=== PATIENT | male | born 1960 | race Caucasian/White ===

== ENCOUNTER → 2017-03-06 | Outpatient (CLI) | payer BC ==
[~2017-03-06] MED LIST: COUM2.5T17 PO; PERC5TAB12 PO
[2017-03-06 11:45] LABS: MEAN CORPUSCULAR HGB CONC 34.4 g/dl (32.0-36.5); RED CELL DISTRIBUTION WIDTH 13.4 % (11.5-14.5); WHITE BLOOD COUNT 4.8 K/mm3 (4.0-10.0)
[2017-03-06 11:48] LABS: INR 0.99
--- NOTE | 2017-03-06 11:53 | REP ---
Clinical: Preoperative assessment . Comparison: None . Technique: PA and lateral. Findings: The mediastinum and cardiac silhouette are normal. Airway is patent and midline. The lung lamb are clear and without acute consolidation, effusion, or pneumothorax. The skeletal structures are intact and normal. Impression: 1. No acute cardiopulmonary process. Signed by Gurdeep Whitman MD 03/06/2017 11:45 A
[2017-03-06 11:57] LABS: ALBUMIN 3.9 GM/DL (3.2-5.2); ALBUMIN/GLOBULIN RATIO 1.15 (1.00-1.93); ALKALINE PHOSPHATASE 47 U/L (45-117); ALT/SGPT 39 U/L (12-78); ANION GAP 5 MEQ/L (8-16); AST/SGOT 26 U/L (15-37); BILIRUBIN,TOTAL 0.7 MG/DL (0.2-1.0); BLOOD UREA NITROGEN 18 MG/DL (7-18); CARBON DIOXIDE LEVEL 31 MEQ/L (21-32); CHLORIDE LEVEL 108 MEQ/L (98-107); CREATININE FOR GFR 0.79 MG/DL (0.70-1.30); GLOMERULAR FILTRATION RATE > 60.0 (>56); GLUCOSE, FASTING 94 MG/DL (70-105); POTASSIUM SERUM 5.1 MEQ/L (3.5-5.1); SODIUM LEVEL 144 MEQ/L (136-145); TOTAL PROTEIN 7.3 GM/DL (6.4-8.2)
--- NOTE | 2017-03-06 13:06 | ECGEPIP ---
Stationary ECG Study [facility] Test Date: 2017-03-06 Pat Name: JEAN MARIE JUÁREZ Department: Room: - Gender: M Supervisor Machining: MARGARET : 1960 Requested By: Moody Bartlett Order Number: [id number] Reading MD: Aniket Sandoval Measurements Intervals [place] Rate: 54 P: 23 MN: 220 QRS: 48 QRSD: 146 T: -2 QT: 443 QTc: 420 Interpretive Statements SINUS BRADYCARDIA WITH FIRST DEGREE AV BLOCK RIGHT BUNDLE BRANCH BLOCK Comparison tracing not on file Electronically Signed On 03-06-2017 13:06:29 EDT by Aniket Sandoval
== END ==
LOC: M ADMPAT 10:03
PROVIDERS: ATTEND Orthopaedic Surgery
DX: Z01.812 Encounter for preprocedural laboratory examination (principal); M17.9 Osteoarthritis of knee, unspecified

== ENCOUNTER 2017-03-20 11:10 | Inpatient (IN) | payer BC ==
[2017-03-06 10:34] VITALS: BP 114/84
--- NOTE | 2017-03-17 14:45 | HPE ---
DATE OF ANTICIPATED ADMISSION: 03/20/2017 ATTENDING PHYSICIAN: Dr. Moody Bartlett. CHIEF COMPLAINT: Right knee pain and stiffness. HISTORY: The patient is a pleasant 57-year-old male with progressively worsening right knee pain and stiffness. He has failed to improve with conservative measures. He continues to have pain with weightbearing activities and activities of daily living. He has consented for an elective right total knee arthroplasty with Dr. Bartlett. Medical clearance from Dr. Dial obtained and reviewed at today's appointment. CURRENT MEDICAL CONDITIONS: Osteoarthritis. CURRENT MEDICATIONS: None. ALLERGIES: No known drug allergies. SURGICAL HISTORY: Inguinal hernia repair. Multiple right knee arthroscopic surgeries. Left knee bursectomy. SOCIAL HISTORY: The patient does not use tobacco and only drinks alcohol socially. REVIEW OF SYSTEMS: Patient denies fevers, chills, nausea, vomiting, or diarrhea. Denies chest pain, shortness of breath, cough, lightheadedness or headaches. He does have congestion currently but states it is improving. He continues to have right knee pain with weightbearing activities and activities of daily living. PHYSICAL EXAMINATION: The patient is a well-nourished, well-developed male in no apparent distress. VITAL SIGNS: Blood pressure 152/96, respirations 14, heart rate 64, height 70 inches, weight 231 pounds, temperature 97.2. NECK: Supple without lymphadenopathy. HEART: Regular rate and rhythm. LUNGS: Clear to auscultation bilaterally. ABDOMEN: Bowel sounds present, soft and nontender to palpation. MUSCULOSKELETAL: The patient is walking today with a slight limp favoring the right leg. Inspection of the right knee does show a very small abrasion to the superolateral knee which appear to be healing well. He does have quite a bit of tenderness along the medial and lateral joint lines. Motion and extension is normal and he can get to approximately 110 degrees of flexion. Right lower extremity strength is normal. No hip irritability was elicited with range of motion. His calf is soft, nontender to palpation with no palpable cords noted. Distally, he is neurovascularly intact. LABORATORY DATA: Chest x-ray: No acute cardiopulmonary process. EKG: Sinus bradycardia with first degree arteriovenous block. Right bundle branch block. Urinalysis: Positive for only 4 RBC per high power field. Urine culture shows no growth. Nasal and sinus culture reveal normal tyesha. Comprehensive metabolic profile: Fasting glucose 94, BUN 18, creatinine 0.79, glomerular infiltration rate greater than 60, sodium 144, potassium 5.1, chloride elevated at 108, carbon dioxide 31, anion gap decreased at 5, calcium 9, AST 26, ALT 39, alkaline phosphatase 47, total bilirubin 0.7, total protein 7.3, albumin 3.9, albumin/globulin ratio 1.15. Complete blood count : WBC 5, RBC 4.8, hemoglobin 15.4, hematocrit 44.7, platelets 215, erythrocyte sedimentation rate 5, prothrombin time 13.2, INR 0.99. IMPRESSION: 1. Right knee osteoarthritis with x-rays notable for endstage degenerative changes. 2. Isolated blood pressure elevation. PLAN: 1. The patient has consented for an elective right total knee arthroplasty with Dr. Bartlett. 2. Isolated blood pressure elevation should not delay surgery pending readings on the day of surgery. [facility]
[~2017-03-20] VITALS: Ht 177.8 cm; Wt 116.5 kg
[~2017-03-20 11:10] MED LIST changes: -COUM2.5T17 PO; +LIDOCAINE 2% INJ 100 MG/5 ML SDV (FOR ANES.) As Ordered ONE; +MIDAZOLAM INJ 2 MG/2 ML VIAL (J2250) As Ordered ONE; +ONDANSETRON 4MG/2ML VIAL (J2405) As Ordered ONE; -PERC5TAB12 PO; +PROPOFOL 200 MG/20 ML VIAL As Ordered ONE; +dexameTHASONE 4 MG/ML 1ML VIAL (J1100) As Ordered ONE; +fentaNYL 100 MCG/2 ML INJECTION (J3010) As Ordered ONE
[2017-03-20] MEDS ORDERED: LR 1,000 ML IV ONE (11:30)
[2017-03-20] MEDS ORDERED: TRANEXAMIC ACID 100 MG/ML 10ML VIAL As Ordered ONE (11:33)
[2017-03-20] MEDS ORDERED: EPINEPHrine INJ 1 MG/ML 1ML AMP As Ordered ONE (11:34)
[2017-03-20] MEDS ORDERED: ceFAZolin 1GM INJ (J0690) As Ordered ONE (11:34)
[2017-03-20] MEDS ORDERED: fentaNYL 100 MCG/2 ML INJECTION (J3010) As Ordered ONE (11:36)
[2017-03-20] MEDS ORDERED: MIDAZOLAM INJ 2 MG/2 ML VIAL (J2250) As Ordered ONE (11:36)
--- NOTE | 2017-03-20 11:38 | IPN ---
DATE: 03/20/2017 Patient was seen and examined. He wished to go with a right total knee arthroplasty. He understands the nature of this, the risks of bleeding, infection, damage to nerves, vessels, persistent pain, wear loosening, blood clots, stiffness, medical problems, among others.
[2017-03-20] MEDS ORDERED: BUPIVACAINE LIPOSOME/PF 1.3% 20 ML VIAL (13.3MG/ML)(EXPAREL) As Ordered ONE (11:48)
[2017-03-20] MEDS: fentaNYL 100 MCG/2 ML INJECTION (J3010) IV PRN ×2 (12:13→12:15)
[2017-03-20] MEDS: MIDAZOLAM INJ 2 MG/2 ML VIAL (J2250) IV PRN ×2 (12:13→12:15)
[2017-03-20] MEDS ORDERED: ROPIvacaine 0.5% 30 ML INJECTION (J2795) ONE (13:57)
[2017-03-20] MEDS ORDERED: dexameTHASONE 10 MG/1 ML VIAL PRES.FREE (J1100) ONE (13:57)
[2017-03-20] MEDS ORDERED: LIDOCAINE 1% MDV 20ML VIAL ONE (13:57)
[2017-03-20] MEDS ORDERED: MORPHINE 1MG/ML IN 0.9% NACL 100ML IV BAG As Ordered ONE (14:05)
[2017-03-20] MEDS ORDERED: fentaNYL 100 MCG/2 ML INJECTION (J3010) IV PRN (15:00)
[2017-03-20] MEDS ORDERED: PERCOCET 5MG/325MG TAB PO PRN (15:00)
[2017-03-20] MEDS ORDERED: ONDANSETRON 4MG/2ML VIAL (J2405) IV PRN ×3 (15:00→15:15)
[2017-03-20] MEDS ORDERED: LR 1,000 ML IV SCH ×2 (15:00)
--- NOTE | 2017-03-20 15:01 | CR ---
DATE OF CONSULTATION: 03/20/2017 PRIMARY CARE PHYSICIAN: Dr. Dial REFERRING PHYSICIAN: Moody Bartlett MD REASON FOR CONSULT: Management of chronic medical issues. CHIEF COMPLAINT: Right knee pain secondary to degenerative joint disease (DJD). HISTORY OF PRESENT ILLNESS: This is a 57-year-old male with history of inguinal hernia repair, multiple right knee arthroscopic surgeries, left knee bursectomy with social alcohol use who presents for right knee replacement due to limitations of activities of daily living (ADL) from severe osteoarthritis (OA). The patient has tried conservative management at home, but with persistent pain, opting for right total knee. He denies any prior history of coronary artery disease, myocardial infarction (CA), congestive heart failure (CHF), no prior history of chronic obstructive pulmonary disease (COPD), emphysema, asthma, chronic bronchitis. Denies nausea, vomiting, diarrhea, abdominal pain, weight gain, weight loss, changes in appetite, weight and upper or lower extremity paresthesias, weakness, changes in vision, headaches, rhinorrhea, sore throat, or nasal congestion. The patient was medically optimized by his primary care physician and currently has no acute issues and had an uneventful right total knee replacement. PAST MEDICAL HISTORY: Inguinal hernia repair. Multiple right knee arthroscopic surgeries. Left knee bursectomy. Osteoarthritis (OA). ALLERGIES: No known drug allergies. HOME MEDICATIONS: None. SOCIAL HISTORY: Social alcohol use, recreational drug use. REVIEW OF SYSTEMS: As per history of present illness; 12 point system otherwise negative. PHYSICAL EXAMINATION: Temperature 97, pulse 68, respiratory rate 18, blood pressure 105/66, 95% on 3 liters nasal cannula. Generally awake, alert and oriented to person, place and time. Answering questions appropriate. Anicteric sclerae. No jaundice. Pupils round and reactive to light and accommodation. Extraocular muscles are intact. Normocephalic, atraumatic. Neck is supple. Full range of motion. No cervical lymphadenopathy or thyromegaly. Lungs clear to auscultation. No wheezing, rales or rhonchi. Heart S1 and S2, sinus rhythm. Abdomen is soft, nontender, nondistended. Positive bowel sounds. Extremities status post right total knee, currently bandaged. Patient has no cyanosis, clubbing or pitting edema bilaterally lower extremities. LABORATORY DATA: 03/06 CBC white count 4.8, hemoglobin 15, hematocrit 44, platelet count 215, sed rate of 5, sodium 144, potassium 5.1, chloride 108, bicarb 31, BUN 18, creatinine 0.79, glucose 94, calcium 9, total bilirubin 0.78, AST 26, ALT 39, alkaline phosphatase 47, total protein 7.3, albumin 3.9. IMAGING STUDIES: Chest x-ray on 03/06/2017 no acute cardiopulmonary process. ASSESSMENT/PLAN: This is a 57-year-old male with a history of osteoarthritis (OA) limiting his activities of daily living due to severe pain of the right knee who presented for right total knee replacement, prior history of multiple arthroscopic surgeries, and inguinal hernia repair and left knee bursectomy. CURRENT ISSUES: 1. Right total knee replacement. Postop management per primary team, Dr. Moody Bartlett, deep vein thrombosis (DVT) prophylaxis, bowel regimen and pain control. Physical therapy to evaluate and treat. Activity per primary team. 2. Osteoarthritis (OA). Pain management per orthopedic surgery. 3. History of inguinal hernia repair. No acute issues. 4. Deep vein thrombosis (DVT) prophylaxis. Coumadin managed by orthopedic surgery. Patient will be followed by Dr. Ritu Navas as the hospitalist sap business objects consultant for any active medical issues.
[2017-03-20] MEDS ORDERED: ACETAMINOPHEN TAB 650MG DOSE (2X325MG) PO PRN (15:15)
[2017-03-20] MEDS ORDERED: MORPHINE 1MG/ML IN 0.9% NACL 100ML IV BAG IV PRN (15:15)
[2017-03-20] MEDS ORDERED: NALBUPHINE HCL 10 MG/ML AMP (J2300) IV PRN (15:15)
[2017-03-20] MEDS ORDERED: diphenhydrAMINE INJ 50MG/ML VIAL (J1200) IV PRN (15:15)
[2017-03-20] MEDS ORDERED: NALOXONE INJ 0.4 MG/1 ML VIAL (J2310) IV PRN (15:15)
[2017-03-20] MEDS ORDERED: FLEET ENEMA PR PRN (15:15)
[2017-03-20] MEDS ORDERED: EPIDURAL/PCA KEYS XX PRN (15:15)
[2017-03-20 15:30] VITALS: BP 133/82
[2017-03-20 16:00] VITALS: BP 136/85
[2017-03-20 17:00] VITALS: BP 131/83
[2017-03-20] MEDS ORDERED: WARFARIN SOD 5 MG TAB PO ONE (17:00)
[2017-03-20 18:00] VITALS: BP 157/86
[2017-03-20 19:00] VITALS: BP 130/81
[2017-03-21 02:00] VITALS: BP 123/82
[2017-03-21 06:00] VITALS: BP 115/83
--- NOTE | 2017-03-21 06:02 | RO ---
DATE OF PROCEDURE: 03/20/2017 PREOPERATIVE DIAGNOSIS: Right knee osteoarthritis. POSTOPERATIVE DIAGNOSIS: Right knee osteoarthritis. PROCEDURE: Right total knee arthroplasty using PFC rotating platform cruciate retaining size 4 femur, size 5 tibia, 12.5 polyethylene. SURGEON: Moody Bartlett MD CRAFT DEMONSTRATOR: BALBIR Bhagat ANESTHESIA: Spinal. ESTIMATED BLOOD LOSS: 50 mL. COMPLICATIONS: None. INDICATIONS: 57-year-old gentleman who has had gradually worsening right knee pain with [id number] contact, significant spurs, significant patellofemoral arthritis. He wished to go ahead with surgical treatment having failed conservative management and he understood the nature of the procedure, the risks of bleeding, infection, damage to nerves, vessels, persistent pain, wear loosening, blood clots, medical problems, , among others. DESCRIPTION OF PROCEDURE: Patient was taken to the operating room, placed supine position after anesthesia was induced. The right lower extremity was prepped and draped in usual sterile fashion. Time-out was performed. Tourniquet was inflated. I then created a longitudinal incision over the anterior aspect of the knee and sharp dissection was carried down through subcutaneous tissue. I then did a medial parapatellar arthrotomy per routine, everted the patella and flexed the knee up. I did remove some of the fat pad for visualization. Medial release was performed per routine. I then flexed the knee, everted the patella and used the intramedullary reamer on the femoral side set with the guide set at 5 of valgus and 10 mm cut. I inserted the intramedullary guide. This was pinned in place by the medical research assistant and the distal femoral cut was made by the medical research assistant under my direct supervision. I then sized the femur to be a 4 and pinned the rotation block in the end of the femur and placed this 4:1 cutting block, size 4 on the end of the femur. The remaining four cuts were made. I then placed the posterior retractor, freed up the posterior cruciate ligament (PCL) and put the tibial alignment guide, impacted this in place and using the 3 degree block pinned this in place about 2 mm off the low side, which was approximately 10 mm off the high side. It seemed to be an appropriate cut. The saw was used to remove this bone protecting soft tissue at all times. It seemed to be an appropriate space. I then used a supervisor international reservations to remove the soft tissue and bone from either side of the knee. Spacer blocks were then used and a size 12.5 spacer was felt to be the most appropriate. I then prepared the tibial tray. Size 5 fit most appropriately. I pinned this in place and then made the drill hole followed by the chela, and the trial polyethylene and femur were inserted and was very pleased with the fit and stability with the 12.5 polyethylene. The patella was then freehand cut removing about 7 or 8 mm of bone. Drill holes were placed using a 38 guide and the patella button was placed. I put the knee through range of motion. Excellent instability, excellent tracking was noted. The drills were placed in the end of the femur and the medical research assistant prepared the bone cement in the modern technique. I used the Exparel injectable, a total of 40 mL that I had diluted 20 of the medication down to 40 total. Injected this around the periosteum and the capsule. I irrigated the bony surfaces and dried them carefully. The tibial tray was then cemented in, impacted in place. We removed excess bone cement. Polyethylene was inserted. We then cemented on the femoral component, impacted this in place and removed excess bone cement. Brought the knee out in extension and then cemented on the patella, held this in place with a clamp, removed excess bone cement, irrigated copiously. Once the cement had hardened, I removed the patellar clamp and placed the Tranexamic acid (TXA) solution in the knee. After a couple minutes, I irrigated again and closed the deep layer with interrupted #1 Vicryl suture, followed by running Stratafix suture starting in the midpoint and working in both directions. We irrigated, closed subcutaneous with #2-0 Vicryl and the skin with saad. Sterile dressing was applied. Tourniquet was deflated and he was taken to recovery in stable condition. There were known complications. The plan will be routine postoperative for a knee replacement. The medical research assistant was instrumental in holding retractors and making one of the cuts and mixing the bone cement and closing.
[2017-03-21] MEDS ORDERED: PERCOCET 5MG/325MG TAB PO PRN (06:30)
[2017-03-21] MEDS: ONDANSETRON 4 MG TAB (S0181) PO PRN ×3 (06:52→16:24)
[2017-03-21 07:05] LABS: MEAN CORPUSCULAR HEMOGLOBIN 29.4 pg (27.0-33.0); MEAN CORPUSCULAR HGB CONC 33.3 g/dl (32.0-36.5); MEAN CORPUSCULAR VOLUME 88.1 fl (80.0-96.0); PLATELET COUNT, AUTOMATED 232 10^3/uL (150-450); RED CELL DISTRIBUTION WIDTH 13.8 % (11.5-14.5); WHITE BLOOD COUNT 14.9 10^3/uL (4.0-10.0)
[2017-03-21 07:09] LABS: ADD MANUAL DIFFER YES; DIFF SLIDE NUMBER 53
[2017-03-21 07:17] LABS: INR 0.98
[2017-03-21 07:39] LABS: ANION GAP 9 MEQ/L (8-16); BLOOD UREA NITROGEN 24 MG/DL (7-18); CALCIUM LEVEL 8.7 MG/DL (8.5-10.1); CARBON DIOXIDE LEVEL 25 MEQ/L (21-32); CHLORIDE LEVEL 103 MEQ/L (98-107); CREATININE FOR GFR 0.97 MG/DL (0.70-1.30); GLOMERULAR FILTRATION RATE > 60.0 (>56); GLUCOSE, FASTING 143 MG/DL (70-105); MAGNESIUM LEVEL 1.8 MG/DL (1.8-2.4); POTASSIUM SERUM 4.4 MEQ/L (3.5-5.1); SODIUM LEVEL 137 MEQ/L (136-145)
[2017-03-21] MEDS: SENOKOT S TAB PO SCH ×2 (08:48→21:00)
[2017-03-21] MEDS: MIRALAX *UNIT DOSE* 17GM PACKET PO SCH (08:48)
[2017-03-21] MEDS: MOM 30ML SUSPENSION UDC PO SCH (08:48)
[2017-03-21] MEDS: PERCOCET 5MG/325MG TAB PO PRN ×3 (08:49→21:07)
--- NOTE | 2017-03-21 09:52 | IPNPDOC ---
Subjective Date Seen The patient was seen on 03/21/17. Subjective Chief Complaint/HPI The patient is a 57-year-old male admitted with a reason for visit of Right Knee Arthritis. Assessment /Plan Problems (1) Status post right knee replacement Status: Acute Response to Treatment: Stable Problem Text: mgmt as per primary team pt states that the right knee is doing well and is not in too much pain will work with PT today and potential d/c in the AM if all goes well pain control as per primary team small elevated WBC, expected only one day post-op. will continue to monitor, no infectious etiology suspected (2) Osteoarthritis Status: Chronic Response to Treatment: Stable Problem Text: stable, pt is s/p right knee replacement one day (3) Nausea & vomiting Status: Acute Response to Treatment: Stable Problem Text: pt did say he vomited 3x this morning and hasn't been able to eat much, vomitus is non-bloody, mostly the food he consumed prior and with no mucus currently receiving Zofran, can consider possible second agent to help handle nausea if Zofran does not work (4) DVT prophylaxis Status: Acute Response to Treatment: Stable Problem Text: c/w Coumadin therapy Plan/VTE VTE Prophylaxis Ordered?: Yes VS, I&O, 24H, Fishbone Vital Signs/I&O Vital Signs Date Time Temp Pulse Resp B/P (MAP) Pulse Ox O2 Delivery O2 Flow Rate FiO2 03/21/17 09:37 16 03/21/17 06:00 96.0 62 115/83 (94) 95 Room Air 03/20/17 12:25 3 I&O- Last 24 Hours up to 6 AM 03/22/17 05:59 Intake Total 0 ml Balance 0 ml Laboratory Data 24H LABS Laboratory Tests 2 03/21/17 06:48: White Blood Count 14.9H, Red Blood Count 4.63, Hemoglobin 13.6L, Hematocrit 40.8L, Mean Corpuscular Volume 88.1, Mean Corpuscular Hemoglobin 29.4, Mean Corpuscular Hemoglobin Concent 33.3, Red Cell Distribution Width 13.8, Platelet Count 232, Monocytes # (Auto) , Neutrophils 83H, Lymphocytes (Manual) 8L, Monocytes (Manual) 9H, Platelet Estimate NORMAL, Red Blood Cell Morphology NORMAL, Prothrombin Time 13.1, Prothromb Time International Ratio 0.98, Anion Gap 9, Glomerular Filtration Rate > 60.0, Blood Urea Nitrogen 24H, Creatinine 0.97, Sodium Level 137, Potassium Level 4.4, Chloride Level 103, Carbon Dioxide Level 25, Calcium Level 8.7, Magnesium Level 1.8, Thyroid Stimulating Hormone ( TSH) 2.190 CBC/BMP Laboratory Tests 03/21/17 06:48 Red Blood Count 4.63, Mean Corpuscular Volume 88.1, Mean Corpuscular Hemoglobin 29.4, Mean Corpuscular Hemoglobin Concent 33.3, Red Cell Distribution Width 13.8 , Monocytes # (Auto) , Calcium Level 8.7 GME ATTESTATION GME ATTESTATION My preceptor for this patient encounter was physically present in the building during the encounter and was fully available. As needed, all aspects of the patient interview, examination, medical decision making process, and medical care plan development were reviewed and approved by the preceptor. Preceptor is aware and concurs with the plan as stated in the body of this note and will attest to such by his/her cosignature. ATTENDING NOTE Physical exam GEN: NAD, AOx3, HEENT: Normocephalic atraumatic. CARDIO: +S1S2. Regular rate. RESP: CTAB ABD: Soft, NT. MSK: S/P right total knee. dressing in place. No edema. SANDRA JETT DO Mar 21, 2017 09:52 AKANKSHA BEACH DO Apr 05, 2017 17:18
[2017-03-21 14:00] VITALS: BP 150/82
[2017-03-21] MEDS ORDERED: WARFARIN SOD 5 MG TAB PO ONE (17:00)
[2017-03-21 22:00] VITALS: BP 150/62
[2017-03-22] MEDS: PERCOCET 5MG/325MG TAB PO PRN ×3 (01:44→10:54)
--- NOTE | 2017-03-22 02:38 | REP ---
Clinical: Status post arthroplasty. Technique: AP and cross-table lateral views. Findings: The patient is status post right knee replacement with normal positioning and appearance to the femoral and tibial components. Overlying postsurgical changes appreciated. Impression: Satisfactory right knee replacement radiographs. Signed by Gurdeep Whitman MD 03/22/2017 02:30 A
[2017-03-22 06:00] VITALS: BP 132/74
[2017-03-22 06:25] LABS: MEAN CORPUSCULAR HGB CONC 33.1 g/dl (32.0-36.5); MEAN CORPUSCULAR VOLUME 87.7 fl (80.0-96.0); RED CELL DISTRIBUTION WIDTH 13.8 % (11.5-14.5); WHITE BLOOD COUNT 11.9 10^3/uL (4.0-10.0)
[2017-03-22 06:32] LABS: INR 1.06
[2017-03-22] MEDS ORDERED: INFLUENZA QUADRIVALENT PF VACCINE 0.5ML SYRINGE (90686) IM ONE (09:00)
[2017-03-22] MEDS ORDERED: ENOXAPARIN 40 MG/0.4 ML SYRINGE (J1650) SC ONE (09:30)
[2017-03-22] MEDS ORDERED: COUM2.5T17 PO (09:33)
[2017-03-22] MEDS ORDERED: PERC5TAB12 PO (09:33)
--- NOTE | 2017-03-22 09:45 | IPNPDOC ---
Subjective Date Seen The patient was seen on 03/22/17. Subjective Chief Complaint/HPI The patient is a 57-year-old male admitted with a reason for visit of Right Knee Arthritis. General: Denies: Chills, Night Sweats, Fatigue, Malaise Constitutional: Denies: Chills, Fever Eyes: Denies: Pain, Vision change ENT: Denies: Head Aches, Ear Pain Skin: Denies: Rash, Lesions, Jaundice Pulmonary: Denies: Dyspnea, Cough Cardiovascular: Denies: Chest Pain, Palpitations, Orthopnea, Edema, Lt Headedness Gastrointestinal: Denies: Nausea, Vomiting, Abdominal Pain, Diarrhea, Constipation Genitourinary: Denies: Dysuria Musculoskeletal: Denies: Neck Pain Neurological: Denies: Weakness, Numbness Psych: Reports: Mood Normal Objective Physical Examination General Exam: Positive: Alert, Cooperative, No Acute Distress Eye Exam: Positive: Conjunctiva & lids normal, EOMI, Negative: Sclera icteric, Ptosis ENT Exam: Positive: Atraumatic, Mucous membr. moist/pink, Pharynx Normal, Tongue Midline, Nares Patent, Negative: Pharyngeal Edema Neck Exam: Positive: Supple, Negative: JVD Chest Exam: Positive: Clear to auscultation, Normal air movement, Negative: Rales, Rhonchi, Wheezing, Diminished Heart Exam: Positive: Rate Normal, Normal S1, Normal S2, Negative: Gallops, Murmurs, Rubs Telemetry: Positive: No significant arrhythmia Abdomen Exam: Positive: Normal bowel sounds, Soft, Negative: Tenderness, Hepatospenomegaly, Mass Extremity Exam: Positive: Normal pulses, Tenderness (minimal tenderness over right knee s/p surgery), Negative: Clubbing, Cyanosis, Edema Psych Exam: Positive: Mental status NL, Oriented x 3 Assessment /Plan Problems (1) Status post right knee replacement Status: Acute Response to Treatment: Stable Problem Text: mgmt as per primary team pt states that the right knee is doing well and is not in too much pain according to notes and the patient, he worked well with PT one day ago pain control as per primary team, pain appears to be adequately controlled WBC count decreased today as expected pt looks stable from medical perspective for d/c., primary team to determine (2) Osteoarthritis Status: Chronic Response to Treatment: Stable Problem Text: stable, pt is s/p right knee replacement two days ago (3) Nausea & vomiting Status: Acute Response to Treatment: Stable Problem Text: pt did say his nausea and vomiting has completely abated today, ate breakfast this morning with no ill effect., states he feels great currently receiving Zofran (4) DVT prophylaxis Status: Acute Response to Treatment: Stable Problem Text: c/w Coumadin therapy Plan/VTE VTE Prophylaxis Ordered?: Yes VS, I&O, 24H, Fishbone Vital Signs/I&O Vital Signs Date Time Temp Pulse Resp B/P (MAP) Pulse Ox O2 Delivery O2 Flow Rate FiO2 03/22/17 07:29 18 03/22/17 06:42 Room Air 03/22/17 06:00 99.1 67 132/74 (93) 97 03/20/17 12:25 3 I&O- Last 24 Hours up to 6 AM 03/23/17 05:59 Intake Total 240 ml Output Total 400 ml Balance -160 ml Laboratory Data 24H LABS Laboratory Tests 2 03/22/17 06:03: Prothrombin Time 13.9, Prothromb Time International Ratio 1.06 CBC/BMP Laboratory Tests 03/22/17 06:03 Red Blood Count 4.31, Mean Corpuscular Volume 87.7, Mean Corpuscular Hemoglobin 29.0, Mean Corpuscular Hemoglobin Concent 33.1, Red Cell Distribution Width 13.8 GME ATTESTATION GME ATTESTATION My preceptor for this patient encounter was physically present in the building during the encounter and was fully available. As needed, all aspects of the patient interview, examination, medical decision making process, and medical care plan development were reviewed and approved by the preceptor. Preceptor is aware and concurs with the plan as stated in the body of this note and will attest to such by his/her cosignature. SANDRA JETT DO Mar 22, 2017 09:45
[2017-03-22] MEDS: MIRALAX *UNIT DOSE* 17GM PACKET PO SCH (10:19)
[2017-03-22] MEDS: MOM 30ML SUSPENSION UDC PO SCH (10:19)
[2017-03-22] MEDS: SENOKOT S TAB PO SCH (10:21)
--- NOTE | 2017-03-23 15:44 | DSES ---
DATE OF ADMISSION: 03/20/2017 DATE OF DISCHARGE: 03/22/2017 ATTENDING PHYSICIAN: Dr. Moody Bartlett ADMITTING DIAGNOSIS: Right knee osteoarthritis. DISCHARGE DIAGNOSIS: Right knee osteoarthritis, status post right total knee arthroplasty. HISTORY: The patient is a 57-year-old male with progressively worsening right knee pain and stiffness. He failed to improve with conservative measures, so he consented for an elective right total knee arthroplasty with Dr. Bartlett. OPERATION PERFORMED: Right total knee arthroplasty. HOSPITAL COURSE: The patient underwent a right total knee arthroplasty under spinal anesthesia, which was uneventful. His hospital course was without complication, and he was up with physical therapy per their protocol, weightbearing as tolerated on the right lower extremity. He was discharged on oral pain medications, and will resume his preoperative medications and diet. The patient will take his Coumadin for 30 days postoperatively and wear his thromboembolic deterrent stockings to prevent deep venous thrombosis. He will followup in our office in 12-14 days for a wound check and staple removal. He is encouraged to contact our office sooner if there is any increased pain, drainage, redness, numbness or tingling in the extremity, fever greater than 101 degrees or any other further concerns. Please see medical record for additional details. MTDD
== END 2017-03-22 14:30 | disposition home health service (06) | DRG 302 ==
LOC: M OR 11:10 → M MS5PR 15:30
PROVIDERS: ADMIT Orthopaedic Surgery; ATTEND Orthopaedic Surgery
PROC: 0SRC0J9 Replacement of Right Knee Joint with Synthetic Substitute, Cemented, Open Approach (ICD-10-PCS; principal; 2017-03-20 13:15)
DX: M17.11 Unilateral primary osteoarthritis, right knee (principal); R11.2 Nausea with vomiting, unspecified; R03.0 Elevated blood-pressure reading, without diagnosis of hypertension